=== PATIENT | male | born 1950 ===

== ENCOUNTER 2016-12-09 15:34 | Emergency (ER) | payer MEDICARE ==
[2016-12-09 15:50] VITALS: BP 109/68; PULSE 79; RESP 17; TEMP 98.7; O2SAT 99
--- NOTE | 2016-12-09 16:20 | ED PDOC ---
HPI: General Adult Time Seen by Provider: 12/09/16 15:52 Chief Complaint (Nursing): Eye Problem History Per: Patient, Family (Fiance) Additional Complaint(s): Pt. states 2 nights ago he was at home talking to his fiance about their money problems and shortly after he began to feel very anxious. As per his fiance she noticed that he was shaking all over and still talking coherently but she did noticed he slurred his speech for "2 seconds" which resolved spontaneously. She also noticed that his eyes were bloodshot. Further states that the shaking lasted for approximately 5 minutes and completely resolved. Pt. states since then he has not had any symptoms but is still feeling stressed out. He has felt stressed out since September when he moved her from [place]. Of note, pt. states he currently is not working. Denies SI/HI, hallucinations, weakness, chest pain , palpitations. Past Medical History Reviewed: Historical Data, Nursing Documentation, Vital Signs Vital Signs: Last Vital Signs Temp 98.7 F 12/09/16 15:44 Pulse 79 12/09/16 15:44 Resp 17 12/09/16 15:44 BP 109/68 12/09/16 15:44 Pulse Ox 99 12/09/16 18:46 - Family History Family History: States: No Known Family Hx - Immunization History Hx Tetanus Toxoid Vaccination: No Hx Influenza Vaccination: No Hx Pneumococcal Vaccination: No - Allergies Allergies/Adverse Reactions: Allergies Allergy/AdvReac Type Severity Reaction Status Date / Time aspirin Allergy RASH Verified 12/09/16 15:44 Review of Systems ROS Statement: Except As Marked, All Systems Reviewed And Found Negative Neurological: Positive for: Weakness Psych: Positive for: Anxiety Physical Exam - Reviewed Nursing Documentation Reviewed: Yes Vital Signs Reviewed: Yes - Physical Exam Appears: Positive for: Well, Non-toxic, No Acute Distress Head Exam: Positive for: ATRAUMATIC, NORMAL INSPECTION, NORMOCEPHALIC Skin: Positive for: Normal Color, Warm. Negative for: Rash Eye Exam: Positive for: EOMI, Normal appearance, PERRL ENT: Positive for: Normal ENT Inspection Neck: Positive for: Normal, Painless ROM Cardiovascular/Chest: Positive for: Regular Rate, Rhythm Respiratory: Positive for: CNT, Normal Breath Sounds Gastrointestinal/Abdominal: Positive for: Normal Exam, Bowel Sounds, Soft. Negative for: Tenderness Back: Positive for: Normal Inspection. Negative for: L CVA Tenderness, R CVA Tenderness Extremity: Positive for: Normal ROM Neurologic/Psych: Positive for: Alert, Oriented, Mood/Affect (calm, cooperative) , Other (Negative Romberg sign). Negative for: Aphasia, Facial Droop - Laboratory Results Result Diagrams: 12/09/16 16:52 12/09/16 16:52 - ECG ECG: Positive for: Interpreted By Me ECG Rhythm: Positive for: Sinus Rhythm. Negative for: ST/T Changes O2 Sat by Pulse Oximetry: 99 - Progress ED Course And Treament: Case d/w Dr. Paiz who recommends labs, CT head w/o contrast, and neuro consult. 1743 CT head w/o contrast: negative Case d/w Dr. Madrid, neurology component assembler, who agrees this is likely of a psychosocial etiology and that pt. can be discharged with outpt. neurology f/u. 1840 Pt. evaluated by crisis. [address] Membreno and cleared the patient for discharge with outpt. f /u. Case d/w Dr. Paiz who agrees with disposition. Disposition - Clinical Impression Clinical Impression: Anxiety - Patient ED Disposition Is Patient to be Admitted: No - Disposition Disposition: Routine/Home Disposition Time: 18:50 Condition: STABLE Instructions: Anxiety (ED) Forms: [facility] (Japanese) Print Language: BRITISH
--- NOTE | 2016-12-09 16:46 | CT ---
PROCEDURE: CT HEAD WITHOUT CONTRAST. HISTORY: slurred speech COMPARISON: None available. TECHNIQUE: Axial computed tomography images were obtained through the head/brain without intravenous contrast. Coronal and sagittal reconstructed images. Radiation dose: Total exam DLP = 548.49 mGy-cm. This CT exam was performed using one or more of the following dose reduction techniques: Automated exposure control, adjustment of the mA and/or kV according to patient size, and/or use of iterative reconstruction technique. FINDINGS: HEMORRHAGE: No intracranial hemorrhage. BRAIN: No mass effect or edema. No atrophy or chronic microvascular ischemic changes. VENTRICLES: Unremarkable. No hydrocephalus. CALVARIUM: Unremarkable. PARANASAL SINUSES: Unremarkable as visualized. No significant inflammatory changes. MASTOID AIR CELLS: Unremarkable as visualized. No inflammatory changes. OTHER FINDINGS: None. IMPRESSION: No acute intracranial abnormalities. No significant findings to account for the clinical presentation.
[2016-12-09 17:02] LABS: BASO # 0.1 K/uL (0.0-0.2); EOS # 0.2 K/uL (0.0-0.7); EOS % 2.7 % (0.0-4.0); HEMOGLOBIN 13.7 g/dL (12.0-18.0); LYMPH # 1.6 K/uL (1.0-4.3); LYMPH % 21.4 % (20.0-40.0); MEAN CELL VOLUME 94.6 fl (80.0-94.0); MEAN CORPUSCULAR HEMOGLOBIN 31.2 pg (27.0-31.0); MEAN CORPUSCULAR HGB CONC 32.9 g/dL (33.0-37.0); MEAN PLATELET VOLUME 8.6 fl (7.2-11.7); MONO # 0.8 K/uL (0.0-0.8); MONO % 11.1 % (0.0-10.0); NEUT # 4.7 K/uL (1.8-7.0); NEUT % 63.8 % (50.0-75.0); RBC 4.41 Mil/uL (4.40-5.90); RED CELL DISTRIBUTION WIDTH 12.6 % (11.5-14.5); WHITE BLOOD COUNT 7.3 K/uL (4.8-10.8)
[2016-12-09 17:15] LABS: ALB/GLOB RATIO 1.5 (1.0-2.1); ALBUMIN 4.2 g/dL (3.5-5.0); ALT/SGPT 51 U/L (21-72); AST/SGOT 30 U/L (17-59); BLOOD UREA NITROGEN 15 mg/dl (9-20); GFR AFRICAN-AMERICAN > 60; GFR NON-AFRICAN AMERICAN > 60
[2016-12-09 17:17] LABS: BARBITURATES, UR NEGATIVE (NEGATIVE); BENZODIAZEPINES, UR NEGATIVE (NEGATIVE); OPIATES, UR NEGATIVE (NEGATIVE); PHENCYCLIDINE, UR NEGATIVE (NEGATIVE)
--- NOTE | 2016-12-10 10:54 | CARD ---
APPROVED REPORT EKG Measurement Heart [id number] <Conclusion> Normal sinus rhythm with sinus arrhythmia Left anterior fascicular block Abnormal ECG
== END 2016-12-09 19:17 | disposition home or self-care (01) ==
LOC: H.ER 15:34
DX: F41.9 Anxiety disorder, unspecified (principal); H53.9 Unspecified visual disturbance
CPT/HCPCS: 70450; 80053; 84484; 85025; 93005; 99285; G0480

== ENCOUNTER 2017-03-20 14:59 | Emergency (ER) | payer MEDICARE ==
[2017-03-20 15:09] VITALS: BP 134/77; PULSE 90; RESP 18; TEMP 98.1; O2SAT 99
--- NOTE | 2017-03-20 16:38 | ED PDOC ---
HPI: CCC, URI, Sore Throat Time Seen by Provider: 03/20/17 15:48 Chief Complaint (Nursing): Flu-like Symptoms Chief Complaint (Provider): Bodyaches, throat pain History Per: Patient History/Exam Limitations: no limitations Have you had recent travel within the past 21 days to any of the following countries: [place], [place], [place] or [place]?: No Onset/Duration Of Symptoms: Days Current Symptoms Are (Timing): Still Present Location Of Pain: Throat, Diffuse Myalgias Sick Contacts (Context): None Associated Symptoms: Sore Throat, Cough. denies: Sputum Additional History Per: Patient Additional Complaint(s): 66yo male, with no known past medical history, presents to the ED for evaluation of bodyaces, sore throat, cough, congestion, weakness for the past 3 days. pot denies any fever, nausea, vomiting or ear pain. of note, patient reports mild discomfort upon swallowing earlier today. He denies any known sick contacts. Patient offers no other medical complaints. Past Medical History Reviewed: Historical Data, Nursing Documentation, Vital Signs Vital Signs: Last Vital Signs Temp 98.1 F 03/20/17 15:07 Pulse 90 03/20/17 15:07 Resp 18 03/20/17 15:07 BP 134/77 03/20/17 15:07 Pulse Ox 99 03/20/17 16:40 - Medical History PMH: Denies: Diabetes, Hepatitis, HIV, HTN, Seizures, Sexually Transmitted Disease - Surgical History Surgical History: No Surg Hx - Family History Family History: States: No Known Family Hx - Living Arrangements Living Arrangements: With Family - Social History Current smoker - smoking cessation education provided: No Ex-Smoker (has not smoked in the last 12 months): No Alcohol: None Drugs: Denies - Immunization History Hx Tetanus Toxoid Vaccination: No Hx Influenza Vaccination: No Hx Pneumococcal Vaccination: No - Home Medications Home Medications: Ambulatory Orders Medication Instructions Recorded Dextromethorphan Polistirex 30 mg PO BID #100 lico.er.12h 03/20/17 [Delsym] Mometasone Furoate [Nasonex] 1 - 2 spray NS BID #1 spray.pump 03/20/17 - Allergies Allergies/Adverse Reactions: Allergies Allergy/AdvReac Type Severity Reaction Status Date / Time aspirin Allergy RASH Verified 12/09/16 15:44 Review of Systems Constitutional: Positive for: Weakness, Malaise. Negative for: Fever, Chills ENT: Positive for: Throat Pain Respiratory: Positive for: Cough Physical Exam - Reviewed Nursing Documentation Reviewed: Yes Vital Signs Reviewed: Yes - Physical Exam Appears: Positive for: Non-toxic, No Acute Distress Head Exam: Positive for: ATRAUMATIC, NORMAL INSPECTION, NORMOCEPHALIC Skin: Positive for: Normal Color, Warm Eye Exam: Positive for: Normal appearance ENT: Positive for: Normal ENT Inspection, TM Is/Are (normal bilaterally). Negative for: Nasal Congestion, Pharyngeal Erythema, Tonsillar Exudate, Tonsillar Swelling Neck: Positive for: Supple Cardiovascular/Chest: Positive for: Regular Rate, Rhythm Respiratory: Positive for: Normal Breath Sounds. Negative for: Respiratory Distress Lymphatic: Positive for: Adenopathy (mild bilateral sub-mandibular lymphadenopathy noted) Neurologic/Psych: Positive for: Alert, Oriented - ECG O2 Sat by Pulse Oximetry: 99 (RA) Pulse Ox Interpretation: Normal Medical Decision Making Medical Decision Making: Time: 1620 Impression: Viral illness, r/o flu Plan: -- Rapid flu-negative Reassess Pt will get Rx for delysm and nasonex with f.u with pmd. given server manager contact to help set up appt. Scribe Attestation: Documented by Maylin Curry acting as a scribe for PAULINA Presley Provider Attestation: All medical record entries made by the Scribe were at my direction and personally dictated by me. I have reviewed the chart and agree that the record accurately reflects my personal performance of the history, physical exam, medical decision making, and the department course for this patient. I have also personally directed, reviewed, and agree with the discharge instructions and disposition. Disposition - Clinical Impression Clinical Impression: Upper respiratory infection - Patient ED Disposition Is Patient to be Admitted: No Counseled Patient/Family Regarding: Studies Performed, Diagnosis, Need For Followup, Rx Given - Disposition Referrals: [facility] [Outside] Disposition: Routine/Home Disposition Time: 17:09 Condition: STABLE Prescriptions: Dextromethorphan Polistirex [Delsym] 30 mg PO BID #100 lico.er.12h Mometasone Furoate [Nasonex] 1 - 2 spray NS BID #1 spray.pump Instructions: Upper Respiratory Infection (ED) Forms: [employer] (Portuguese)
== END 2017-03-20 18:11 | disposition home or self-care (01) ==
LOC: H.ER 14:59
DX: J06.9 Acute upper respiratory infection, unspecified (principal)

== ENCOUNTER 2017-04-05 17:44 | Emergency (ER) | payer MEDICARE ==
[2017-04-05 18:09] VITALS: BP 135/81; PULSE 87; RESP 17; TEMP 98.1; O2SAT 97
--- NOTE | 2017-04-05 18:45 | ED PDOC ---
HPI: Back Time Seen by Provider: 04/05/17 18:18 Chief Complaint (Nursing): Back Pain Chief Complaint (Provider): Back Pain History Per: Patient History/Exam Limitations: no limitations Onset/Duration Of Symptoms: Days (x 10) Current Symptoms Are (Timing): Still Present Additional Complaint(s): Jesús Day is a 66-year-old male who presents complaining of right- sided rib pain, onset after he fell last Monday. Patient did not seek medical attention at that time. He notes the area is painful to the touch and with movement or torso. He has been taking Tylenol for the pain, with some improvement. No medications were taken today for pain relief. Patient admits to having increased pain today while lifting heavy objects at work. He denies any associated dysuria, hematuria, or incontinence. PMD: Juliana Gupta MD Past Medical History Reviewed: Historical Data, Nursing Documentation, Vital Signs Vital Signs: Last Vital Signs Temp 98.1 F 04/05/17 18:05 Pulse 87 04/05/17 18:05 Resp 17 04/05/17 18:05 BP 135/81 04/05/17 18:05 Pulse Ox 97 04/05/17 18:05 - Medical History PMH: No Chronic Diseases - Surgical History Surgical History: Hernia Repair Other surgeries: Eye surgery - Family History Family History: States: No Known Family Hx - Living Arrangements Living Arrangements: With Family - Social History Current smoker - smoking cessation education provided: No Alcohol: None Drugs: Denies - Home Medications Home Medications: Ambulatory Orders Medication Instructions Recorded Dextromethorphan Polistirex 30 mg PO BID #100 lico.er.12h 03/20/17 [Delsym] Mometasone Furoate [Nasonex] 1 - 2 spray NS BID #1 spray.pump 03/20/17 Cyclobenzaprine [Cyclobenzaprine 10 mg PO TID PRN #20 tab 04/05/17 HCl] - Allergies Allergies/Adverse Reactions: Allergies Allergy/AdvReac Type Severity Reaction Status Date / Time aspirin Allergy RASH Verified 12/09/16 15:44 Review of Systems ROS Statement: Except As Marked, All Systems Reviewed And Found Negative Cardiovascular: Negative for: Chest Pain Respiratory: Negative for: Shortness of Breath Genitourinary Male: Negative for: Dysuria, Incontinence, Hematuria Musculoskeletal: Positive for: Other (Rib pain, right side s/p fall last week) Physical Exam - Reviewed Nursing Documentation Reviewed: Yes Vital Signs Reviewed: Yes - Physical Exam Appears: Positive for: Non-toxic, No Acute Distress Head Exam: Positive for: ATRAUMATIC, NORMAL INSPECTION, NORMOCEPHALIC Skin: Positive for: Normal Color Eye Exam: Positive for: Normal appearance Cardiovascular/Chest: Positive for: Other (Tenderness to right lateral chest wall. No swelling or ecchymosis, no palpable bony deformity) Respiratory: Negative for: Respiratory Distress Back: Positive for: Normal Inspection Extremity: Positive for: Normal ROM Neurologic/Psych: Positive for: Alert, Oriented - ECG O2 Sat by Pulse Oximetry: 97 (RA) Pulse Ox Interpretation: Normal - Other Rad CXR with right rib series X-Ray: Interpreted by Me, Viewed By Me X-Ray Interpretation: no acute finding Medical Decision Making Medical Decision Making: Time: 18:36 Initial Impression: 66 year old male with Rib Pain status post Fall Initial Plan: --Flexeril 10 mg PO --Tylenol 975 mg PO --X-RAY Ribs and Chest, Right --Reevaluation Patient states the pain is resolved after meds given. He is aware of x-ray results, all questions answered. He was instructed to continue Tylenol for pain and prescription also provided for Flexeril. Advised PMD follow-up in 2-3 days. Scribe Attestation: Documented by Layla Kohler, acting as a scribe for Sunitha Meyer PA-C Provider Scribe Attestation: All medical record entries made by the Scribe were at my direction and personally dictated by me. I have reviewed the chart and agree that the record accurately reflects my personal performance of the history, physical exam, medical decision making, and the department course for this patient. I have also personally directed, reviewed, and agree with the discharge instructions and disposition. Disposition - Clinical Impression Clinical Impression: Rib contusion - Patient ED Disposition Is Patient to be Admitted: No Counseled Patient/Family Regarding: Studies Performed, Diagnosis, Need For Followup, Rx Given - Disposition Referrals: Lynn Gupta MDE [[facility]] - Disposition: Routine/Home Disposition Time: 19:59 Condition: IMPROVED Additional Instructions: Continue with [id number] Tylenol and take this along with prescribed pain medication. Rest and avoid heavy lifting. Follow up with primary doctor for any persistent symptoms. Prescriptions: Cyclobenzaprine [Cyclobenzaprine HCl] 10 mg PO TID PRN #20 tab PRN Reason: Muscle Spasm Instructions: Rib Contusion (ED) Forms: [facility] (Belarusian)
--- NOTE | 2017-04-06 10:25 | RAD ---
PROCEDURE: Radiographs of the Chest and Right Ribs. HISTORY: trauma COMPARISON: None available. TECHNIQUE: Frontal radiograph of the chest and multiple oblique radiographs of the right ribs were obtained. FINDINGS: RIGHT RIBS: Nondisplaced fractures of the right posterior 10th and 11th ribs. LUNGS: Clear. PLEURA: No pneumothorax or pleural fluid. CARDIOVASCULAR: Normal sized heart. No pulmonary vascular congestion. OTHER FINDINGS: None. IMPRESSION: Nondisplaced fractures of the right posterior 10th and 11th ribs. ER discrepancy notification submitted.
== END 2017-04-05 20:04 | disposition home or self-care (01) ==
LOC: H.ER 17:44
DX: S22.41XA Multiple fractures of ribs, right side, initial encounter for closed fracture (principal); W19.XXXA Unspecified fall, initial encounter; Y92.89 Other specified places as the place of occurrence of the external cause